=== PATIENT | female | born 1980 | race Asian ===

== ENCOUNTER 2023-12-21 05:48 | Observation (INO) | payer BC ==
[~2023-12-21] VITALS: Ht 149.9 cm; Wt 58.1 kg
[~2023-12-21 05:48] MED LIST: CALCIUM500 MG; CLARITIN10 MG PO; MULTI-VITAMIN1 EACH PO; VITAMIN C1000 MG PO
[2023-12-21] MEDS ORDERED: LACTATED RINGER'S 1,000 ML ONE (06:14)
[2023-12-21] MEDS ORDERED: TYLENOL325 MG PO (06:30)
[2023-12-21] MEDS ORDERED: EPINEPHRINE HCL 1:1000 1ML 1 MG/ML AMP ONE (06:40)
[2023-12-21] MEDS ORDERED: PROPOFOL IV EMULSION 50 ML IV ONE (06:48)
[2023-12-21] MEDS ORDERED: SODIUM CHLORIDE 0.9% INJ 10 ML VIAL ONE (07:06)
[2023-12-21] MEDS: FENTANYL CITRATE/PF 100MCG/2 ML INJ ONE ×4 (09:42→10:25)
[2023-12-21] MEDS ORDERED: ONDANSETRON HCL INJ 2MG/ML 2ML 2 MG/ML VIAL IV PRN (10:00)
[2023-12-21] MEDS ORDERED: ACETAMINOPHEN 1000 MG/100 ML 100 ML IV ONE (10:51)
[2023-12-21] MEDS ORDERED: KETOROLAC TROMETHAMINE 30 MG/ML VIAL ONE (10:52)
[2023-12-21] MEDS: HYDROCODONE/APAP 5MG-325MG TAB PO PRN ×3 (11:35→21:13)
[2023-12-21] MEDS ORDERED: PROPOFOL IV EMULSION 10 MG/ML 20 ML VIAL ONE (11:48)
[2023-12-21] MEDS ORDERED: LABETALOL HCL 5 MG/ML 20ML VIAL ONE (11:48)
[2023-12-21] MEDS ORDERED: ONDANSETRON HCL INJ 2MG/ML 2ML 2 MG/ML VIAL ONE (11:48)
[2023-12-21] MEDS ORDERED: DEXAMETHASONE SOD PHOS INJ 4 MG/ML SDV ONE (11:48)
[2023-12-21] MEDS ORDERED: LIDOCAINE HCL 2% LOCAL INJ 5 ML SDV VIAL INJ ONE (11:48)
[2023-12-21] MEDS ORDERED: SEVOFLURANE INHAL SOLN 250 ML PEN BTL ONE (11:48)
[2023-12-21] MEDS ORDERED: SUCCINYLCHOLINE CHLORIDE 20 MG/ML 10ML VIAL ONE (11:48)
[2023-12-21 13:24] VITALS: BP 126/79; PULSE 95; TEMP 97.5; O2SAT 100
[2023-12-21] MEDS ORDERED: MIDAZOLAM HCL 2 MG/2 ML VIAL ONE (13:28)
[2023-12-21] MEDS ORDERED: FENTANYL CITRATE/PF 100MCG/2 ML INJ ONE (13:28)
[2023-12-21 13:30] VITALS: BP 126/79; PULSE 95; RESP 17; TEMP 97.5; O2SAT 100
[2023-12-21 13:55] VITALS: BP 126/79; PULSE 87; RESP 16; TEMP 97.5; O2SAT 100
[2023-12-21] MEDS ORDERED: D5.45%NS/KCL 20MEQ 1,000 ML IV SCH (14:00)
[2023-12-21 21:01] VITALS: BP 109/73; PULSE 107; RESP 18; TEMP 97.8; O2SAT 100
[2023-12-22] VITALS: BP 115/71; PULSE 96; RESP 17; TEMP 98.4; O2SAT 99
[2023-12-22 02:16] VITALS: BP 115/71; PULSE 96; RESP 17; TEMP 98.4; O2SAT 99
[2023-12-22 04:00] VITALS: BP 130/95; PULSE 81; RESP 17; TEMP 98.1; O2SAT 99
[2023-12-22] MEDS: HYDROCODONE/APAP 5MG-325MG TAB PO PRN ×2 (04:11→09:49)
[2023-12-22 09:00] VITALS: BP 114/69; PULSE 114; RESP 18; TEMP 97.9; O2SAT 99
[2023-12-22 09:19] VITALS: BP 114/69; PULSE 114; RESP 18; TEMP 97.9; O2SAT 99
== END 2023-12-22 11:19 | disposition home or self-care (01) ==
LOC: OR 05:48 → EDSEX 07:00 → PACU V 09:34 → MED/SURG2 13:12
PROVIDERS: ADMIT Otolaryngology; ATTEND Otolaryngology
DX: R22.0 Localized swelling, mass and lump, head (principal); D11.0 Benign neoplasm of parotid gland
CPT/HCPCS: 42420; 81025; 88307; 88331; C1713; G0378 ×2; J0131; J0171; J0330; J0690 ×2; J1100; J1885; J2001; J2250; J2405 ×2; J2704 ×2; J3010; J3490; J7121; 88304